=== PATIENT | female | born 1940 | race Caucasian/White ===

== ENCOUNTER 2017-04-20 05:20 | Day surgery (SDC) | payer MEDICARE ==
[2017-04-20] MEDS ORDERED: Dextrose 5%-Lactated Ringers 1,000 ML IV SCH (06:00)
[2017-04-20] MEDS ORDERED: Glycopyrrolate 0.2 MG/ML 2 ML SYRINGE IVPUSH ONE (07:15)
[2017-04-20] MEDS ORDERED: Propofol 200 MG/20 ML SDV ONE (07:22)
[2017-04-20] MEDS ORDERED: Ondansetron 4 MG/2 ML SDV ONE (07:22)
[2017-04-20] MEDS ORDERED: fentaNYL 100 MCG/2 ML SDV ONE (07:23)
[2017-04-20] MEDS ORDERED: Midazolam 1 MG/ML 2 ML SDV ONE (07:23)
[2017-04-20] MEDS ORDERED: Pantoprazole 40 MG Vial IVPUSH ONE (08:30)
[2017-04-20 09:55] VITALS: BP 123/75
--- NOTE | 2017-04-29 13:21 | OR ---
DATE OF PROCEDURE: 04/20/2017 PREOPERATIVE DIAGNOSIS: Upper abdominal pain. POSTOPERATIVE DIAGNOSIS: Upper abdominal pain associated with: 1. Small hiatal hernia with mild inflammation of esophagogastric junction. 2. Mild antral gastritis. OPERATIVE PROCEDURE: Esophagogastroduodenoscopy with: 1. Biopsies of esophagogastric junction for histologic evaluation. 2. Biopsies of antrum for CLOtest. ANESTHESIA: IV sedation. INDICATIONS FOR PROCEDURE: This is a 76-year-old presenting with some episodes of upper abdominal pain. The patient describes the pain predominantly being postprandial. It is somewhat more to the right and radiating to the back. She does have occasional overt heartburn, presently is on Zantac 300 mg a day. The plan is to proceed with an upper GI endoscopy with biopsies as indicated. Potential risks of the procedure including bleeding and perforation were discussed, and the patient wishes to proceed. DETAILS OF PROCEDURE: The patient was taken to the operating room and placed in a left lateral decubitus position. IV sedation was administered, after which the upper GI endoscope was passed orally through the length of the esophagus and into the stomach with retroflexion view of the fundus, thereafter through the pyloric channel and into the proximal duodenum. Findings included normal hypopharynx, larynx, upper esophageal sphincter. The esophageal body was unremarkable. At the EG junction, there was a small hiatal hernia with some quite mild-appearing inflammation with the mucosa being slightly edematous and friable. There was no upward extension of the gastroesophageal junction mucosal line, suggestive of Sher esophagus and no stricturing or other signs of neoplasia. Within the stomach, there was a small amount of retained bile. There was some mild patchy redness within the antrum. Otherwise, the pyloric channel and the duodenum to the junction of the third and fourth portions were unremarkable. At this point, biopsies were obtained from the antrum and sent for CLOtest for H. pylori. Multiple biopsies were then obtained from the esophagogastric junction, sent for histologic evaluation. Minimal bleeding from the biopsy sites was seen and the procedure then concluded. The patient does have some cough which has been attributed potentially to some reflux disease. The plan will be to move the patient up to Protonix from the H2 manuel. She will be given Protonix 40 mg IV in the recovery room and started on oral dose 40 mg daily. Overall, the symptoms that the patient describes are not consistent with the upper GI endoscopic findings and are somewhat suggestive of biliary colic. Given this, we will schedule the patient for a CCK-stimulated HIDA scan early next week, and then we will see her back on the following Sunday to gather all the data at that point and decide what treatment plan to pursue. Edgardo Sahu MD /[id number]
== END 2017-04-20 09:20 | disposition home or self-care (01) ==
LOC: JP.SDS 05:20
PROVIDERS: ATTEND Surgery
DX: K29.50 Unspecified chronic gastritis without bleeding (principal); K20.9 Esophagitis, unspecified; K44.9 Diaphragmatic hernia without obstruction or gangrene; Z88.0 Allergy status to penicillin
CPT/HCPCS: 87081; 88305; C9113; J2250; J2405; J2704; J3010; J7042

== ENCOUNTER 2017-04-30 08:04 | Day surgery (SDC) | payer MEDICARE ==
[~2017-04-30 08:04] MED LIST: Bupivacaine 0.5%/EPINEPHrine 1:200,000 50 ML MDV ONE
[2017-04-30] MEDS ORDERED: Acetaminophen Soln 650 MG/20.3 ML UD Cup PO ONE (08:30)
[2017-04-30] MEDS ORDERED: Acetaminophen 500 MG Tab PO ONE (08:30)
[2017-04-30] MEDS ORDERED: Naloxone 0.4 MG/ML SDV IV PRN (08:54)
[2017-04-30] MEDS ORDERED: HYDROmorphone/Normal Saline 15 MG/30 ML PCA IV PRN (08:54)
[2017-04-30] MEDS ORDERED: cefOXitin 2 GM Vial IV ONE (09:00)
[2017-04-30] MEDS: Dextrose 5%-Lactated Ringers 1,000 ML IV SCH ×2 (09:03→14:13)
[2017-04-30] MEDS ORDERED: Ketamine 500 MG/5 ML MDV IV ONE (09:15)
[2017-04-30] MEDS ORDERED: Albuterol/Ipratropium 3.0-0.5 MG/3 ML Neb Soln NEB ONE (10:22)
[2017-04-30] MEDS: cefOXitin 2 GM in Premix Bag 1 BAG IV ONE ×2 (10:22→14:29)
[2017-04-30] MEDS: Ropivacaine 30 ML, Dexamethasone 8 MG, EPINEPHrine 0.4 MG, Sodium Chloride 0.9% 47.6 ML NERVRT ONE ×8 (10:23→14:29)
[2017-04-30] MEDS ORDERED: fentaNYL 250 MCG/5 ML SDV ONE (10:26)
[2017-04-30] MEDS ORDERED: Neostigmine Methylsulfate 1 MG/ML 5 ML Syringe ONE (10:28)
[2017-04-30] MEDS ORDERED: Succinylcholine/Normal Saline 200 MG/10 ML Syringe ONE (10:28)
[2017-04-30] MEDS ORDERED: Propofol 200 MG/20 ML SDV ONE (10:28)
[2017-04-30] MEDS ORDERED: Ondansetron 4 MG/2 ML SDV ONE (10:28)
[2017-04-30] MEDS ORDERED: Dexamethasone 4 MG/ML SDV ONE (10:28)
[2017-04-30] MEDS ORDERED: Rocuronium 50 MG/5 ML Vial ONE (10:28)
[2017-04-30] MEDS ORDERED: Insulin Aspart 100 Units/ML 3 ML Pen SUBCUT ONE (12:10)
[2017-04-30] MEDS ORDERED: Albuterol/Ipratropium 3.0-0.5 MG/3 ML Neb Soln INH PRN (12:15)
[2017-04-30] MEDS ORDERED: Acetaminophen/HYDROcodone 325-5 MG Tab PO PRN (12:16)
[2017-04-30] MEDS ORDERED: Glucagon,Human Recombinant 1 MG Vial IM PRN (12:17)
[2017-04-30] MEDS ORDERED: 50% Dextrose in Water 50 ML Syringe IVPUSH PRN (12:17)
[2017-04-30] MEDS ORDERED: Glucose Gel 15 GM in 37.5 GM Tube PO PRN (12:17)
[2017-04-30] MEDS ORDERED: Ondansetron 4 MG/2 ML SDV IVPUSH PRN (13:00)
[2017-04-30] MEDS ORDERED: Pantoprazole 40 MG Vial IVPUSH SCH (14:00)
[2017-04-30] MEDS: cefOXitin 2 GM in Sodium Chloride 0.9% 50 ML IV SCH ×2 (17:27→21:33)
[2017-04-30] MEDS: Insulin Aspart 100 Units/ML 3 ML Pen SUBCUT PRN ×2 (17:29→21:31)
[2017-04-30] MEDS: Acetaminophen 325 MG Tab PO PRN (20:15)
[2017-05-01] MEDS: Dextrose 5%-Lactated Ringers 1,000 ML IV SCH (00:28)
[2017-05-01] MEDS: Acetaminophen 325 MG Tab PO PRN ×2 (02:12→11:55)
[2017-05-01] MEDS: cefOXitin 2 GM in Sodium Chloride 0.9% 50 ML IV SCH (04:32)
[2017-05-01] MEDS: Insulin Aspart 100 Units/ML 3 ML Pen SUBCUT PRN (08:38)
--- NOTE | 2017-05-01 09:22 | PCM.CONS ---
H&P History of Present Illness - General Date of Service: 05/01/17 Admit Problem/Dx: Admission Diagnosis/Problem Admission Diagnosis/Problem Cholecystectomy Source of Information: Patient, RN History Limitations: Reports: No Limitations - History of Present Illness Initial Comments - Free Text/Narative: Pamella was admitted yesterday for elective cholecystectomy to manage biliary dyskinesia. I was asked to see her today regarding a suspected new diagnosis of diabetes mellitus with a hemoglobin A1c of 7.2. She reports that she has not been feeling well for the last several months because of her gallbladder issues that she thought was ulcer. She has not been eating well and has not been exercising like normal. She has not noticed polyuria or polydipsia. She normally is very active and had been a runner up until about one year ago. She has not noticed significant changes in her weight. No neuropathic symptoms. Back Pain Score (Numeric/FACES): 3 Abdomen Pain Score (Numeric/FACES): 3 - Related Data Allergies/Adverse Reactions: Allergies Allergy/AdvReac Type Severity Reaction Status Date / Time Penicillins Allergy unknown Verified 04/30/17 08:42 Home Medications: Home Meds Acetaminophen [Mapap] 500 mg PO DAILY 12/31/12 [History] Calcium Carbonate/Vitamin D3 [Calcarb 600 with Vit D] 1 each PO DAILY 12/31/12 [ History] Cetirizine HCl [Zyrtec] 10 mg PO DAILY 12/31/12 [History] Diclofenac Sodium [Voltaren] 4 gm TOP QID PRN 12/31/12 [History] Simvastatin 10 mg OR BEDTIME 12/31/12 [History] Albuterol Sulfate [Proair Respiclick] 1 - 2 puff IH Q4HR PRN 04/18/17 [History] Ranitidine HCl [Zantac] 150 mg PO BID 04/18/17 [History] Pantoprazole Sodium [Protonix] 40 mg PO DAILY 04/27/17 [History] Acetaminophen [Tylenol] 650 mg PO Q4H PRN tablet 05/01/17 [Rx] Past Medical History HEENT History: Reports: None, Sinusitis Cardiovascular History: Reports: High Cholesterol Respiratory History: Reports: Asthma Gastrointestinal History: Reports: Colon Polyp, GERD, PUD Genitourinary History: Reports: None Musculoskeletal History: Reports: Fracture, Osteoporosis Neurological History: Reports: Concussion Hematologic History: Reports: Blood Transfusion(s) Dermatologic History: Reports: Eczema - Infectious Disease History Infectious Disease History: Reports: Chicken Pox - Past Surgical History Head Surgeries/Procedures: Reports: None HEENT Surgical History: Reports: Adenoidectomy, Tonsillectomy Cardiovascular Surgical History: Reports: None Respiratory Surgical History: Reports: None GI Surgical History: Reports: Colonoscopy, EGD, Polypectomy Female Surgical History: Reports: Hysterectomy Neurological Surgical History: Reports: None Musculoskeletal Surgical History: Reports: None Oncologic Surgical History: Reports: None Dermatological Surgical History: Reports: None Social & Family History - Family History Endocrine/Metabolic: Reports: Diabetes, type II Oncologic: Reports: Colon - Tobacco Use Smoking Status *Q: Never Smoker Second Hand Smoke Exposure: No - Caffeine Use Caffeine Use: Reports: Tea - Alcohol Use Days Per Week of Alcohol Use: 0 - Recreational Drug Use Recreational Drug Use: No Drug Use in Last 12 Months: No H&P Review of Systems - Review of Systems: Review Of Systems: See Below Free Text/Narrative: A complete 12 point review of systems was obtained. Pertinent positives and negatives are noted in the history of present illness. All other systems were reviewed and were negative except as noted. Exam - Exam Exam: See Below - Vital Signs Vital Signs: Last Vital Signs Temp 37.2 C 05/01/17 07:00 Pulse 73 05/01/17 07:00 Resp 18 05/01/17 07:00 BP 125/56 L 05/01/17 07:00 Pulse Ox 92 L 05/01/17 07:00 Weight: 60.781 kg - Exam Quality Assessment: No: Supplemental Oxygen General: Alert, Oriented, Cooperative. No: Mild Distress HEENT: Conjunctiva Clear, Mucosa Moist & [place]. No: Scleral Icterus Neck: Supple, Trachea Midline Lungs: Normal Respiratory Effort. No: Wheezing Cardiovascular: Regular Rate, Regular Rhythm GI/Abdominal Exam: Soft, No Distention Extremities: No Pedal Edema. No: Increased Warmth Skin: Warm, Dry Neuro Extensive - Mental Status: Alert, Oriented x3, Nl Response to Commands Neuro Extensive - Motor, Sensory, Reflexes: CN II-XII Intact. No: Dysarthria, Abnormal Motor, Tremor Psychiatric: Alert, Normal Affect - Patient Data Lab Results Last 24 hrs: Laboratory Results - last 24 hr 05/01/17 05/01/17 05/01/17 Range/Units 04:31 04:31 04:31 WBC 15.4 H (4.5-11.0) K/uL RBC 4.24 (3.30-5.50) M/uL Hgb 12.0 (12.0-15.0) g/dL Hct 37.3 (36.0-48.0) % MCV 88 (80-98) fL MCH 28 (27-31) pg MCHC 32 (32-36) % Plt Count 210 (150-400) K/uL Neut % (Auto) 80 H (36-66) % Lymph % (Auto) 13 L (24-44) % [place] % (Auto) 8 H (2-6) % Eos % (Auto) 0 L (2-4) % Baso % (Auto) 0 (0-1) % Hemoglobin A1c 7.2 H (4.5-6.2) % Total Bilirubin 0.4 (0.2-1.0) mg/dL Alkaline Phosphatase 105 (46-116) U/L Result Diagrams: 05/01/17 04:31 Consult PN Assessment/Plan POD#: 1 Procedures: Procedures COMP SCREEN MAMMOGRAM ADD-ON (01/22/14) CT MAXILLOFACIAL W/O DYE (09/20/16) CULTURE SCREEN ONLY (04/20/17) DIAGNOSTIC COLONOSCOPY (01/01/13) EGD BIOPSY SINGLE/MULTIPLE (04/20/17) HOT OR COLD PACKS THERAPY (12/15/14) MAMMOGRAM SCREENING (12/19/12) MANUAL THERAPY 1/> REGIONS (12/15/14) PT EVALUATION (11/13/14) THERAPEUTIC EXERCISES (12/15/14) TISSUE EXAM BY PATHOLOGIST (04/20/17) (1) Diabetes mellitus, type II SNOMED Code(s): 53287112 Code(s): E11.9 - TYPE 2 DIABETES MELLITUS WITHOUT COMPLICATIONS Qualifiers: Diabetes mellitus complication status: without complication Diabetes mellitus intermediate designer insulin use: without intermediate use Qualified Code(s): E11.9 - Type 2 diabetes mellitus without complications Problem List Initiated/Reviewed/Updated: Yes Plan: ASSESSMENT AND PLAN - New diagnosis of diabetes mellitus type 2 - very mild elevation of hemoglobin A1c at 7.2. We did discuss diabetes mellitus as well as some foods that are higher in sugars as well as importance of good diet and exercise. We discussed potential treatment options including lifestyle modification versus medication versus both. At this point she would like to avoid additional medications and like to try to modify her lifestyle by increasing her exercise and decreasing carbohydrate intake. She believes she will be able to accomplish this and has room in her lifestyle for sufficient changes. She will be meeting with the clinical staff educator later in the day and is interested in a follow-up with her primary care for further discussion once she has been out of the hospital. -I encouraged her to get regular exercise and she has previously had a successful walking program -She will be making dietary changes with additional recommendations from the diabetic educators -outpatient follow-up with primary care -Repeat hemoglobin A1c in 3 months Biliary dyskinesia status post cholecystectomy - clinically doing well. No pain at this time. -Postoperative cares per surgical team Thank you for the interesting consultation. I do not believe she needs additional inpatient management for her diabetes which is very mild at this time. She should be able to make significant lifestyle modifications and avoid medications based on the current situation. I would defer additional care to the primary care setting. Navarro Doan M.D. Requesting Provider: Dr Sahu Date Consult Requested: 05/01/17 Reason for Consult: new diabetes diagnosis Patient History Reviewed: Yes Admission H&P Reviewed: No (not available) Notified Requestor: No Time Spent (in minutes): 55
[2017-05-01 13:32] VITALS: BP 133/64
--- NOTE | 2017-05-01 17:33 | PCM.SURGPN ---
- General Info Date of Service: 05/01/17 Date of Surgery/Procedure: 04/30/17 POD#: 1 Post-Op Diagnosis: S/p cholecystetomy secondary to biliary dyskinesia Admission Diagnosis/Problem: Biliary dyskinesia Functional Status: Reports: Pain Controlled Pain Score: 2 - Review of Systems General: Reports: No Symptoms Pulmonary: Reports: No Symptoms Cardiovascular: Reports: No Symptoms Gastrointestinal: Reports: No Symptoms, Other (no constipation, vomiting, nausea or diarrhea. ) Genitourinary: Reports: No Symptoms Musculoskeletal: Reports: No Symptoms Skin: Reports: No Symptoms Neurological: Reports: No Symptoms Psychiatric: Reports: No Symptoms - Patient Data Vitals - Most Recent: Last Vital Signs Temp 36.4 C 05/01/17 13:00 Pulse 70 05/01/17 13:00 Resp 18 05/01/17 13:00 BP 133/64 05/01/17 13:00 Pulse Ox 99 05/01/17 13:00 Weight - Most Recent: 60.781 kg I&O - Last 24 Hours: Intake & Output 05/01/17 05/01/17 05/01/17 06:59 14:59 22:59 Intake Total 1713 480 Output Total 2250 400 Balance -537 80 Lab Results Last 24 Hrs: Laboratory Results - last 24 hr 05/01/17 05/01/17 05/01/17 Range/Units 04:31 04:31 04:31 WBC 15.4 H (4.5-11.0) K/uL RBC 4.24 (3.30-5.50) M/uL Hgb 12.0 (12.0-15.0) g/dL Hct 37.3 (36.0-48.0) % MCV 88 (80-98) fL MCH 28 (27-31) pg MCHC 32 (32-36) % Plt Count 210 (150-400) K/uL Neut % (Auto) 80 H (36-66) % Lymph % (Auto) 13 L (24-44) % [place] % (Auto) 8 H (2-6) % Eos % (Auto) 0 L (2-4) % Baso % (Auto) 0 (0-1) % Hemoglobin A1c 7.2 H (4.5-6.2) % Total Bilirubin 0.4 (0.2-1.0) mg/dL Alkaline Phosphatase 105 (46-116) U/L Med Orders - Current: Current Medications Discontinued Medications Acetaminophen (Tylenol Extra Strength) 1,000 mg PO ONETIME ONE Stop: 04/30/17 08:31 Last Admin: 04/30/17 09:02 Dose: 1,000 mg Acetaminophen (Tylenol) 650 mg PO Q4H PRN PRN Reason: LESSER PAIN Last Admin: 05/01/17 11:55 Dose: 650 mg Hydrocodone Bitart/Acetaminophen ([place] 325-5 Mg) 1 - 2 tab PO Q4H PRN PRN Reason: Pain Albuterol/Ipratropium (Duoneb 3.0-0.5 Mg/3 Ml) 3 ml NEB ONETIME ONE Stop: 04/30/17 10:23 Last Admin: 04/30/17 10:26 Dose: 3 ml Albuterol/Ipratropium (Duoneb 3.0-0.5 Mg/3 Ml) 3 ml INH QID PRN PRN Reason: BREATHING DIFFICULTY Bupivacaine HCl/Epinephrine Bitart ([place] 0.5%/Epinephrine 1:200,000) Confirm Administered Dose 50 ml .ROUTE .STK-MED ONE Stop: 04/30/17 06:49 Ropivacaine 30 ml/Dexamethasone 8 mg/Epinephrine HCl 0.4 mg/ Sodium Chloride 47.6 ml 0 ml NERVRT ONETIME ONE Stop: 04/30/17 09:16 Last Admin: 04/30/17 14:29 Dose: Not Given Dexamethasone (Dexamethasone) Confirm Administered Dose 4 mg .ROUTE .STK-MED ONE Stop: 04/30/17 10:29 Dextrose (Glutose 15) 15 gm PO ASDIRECTED PRN PRN Reason: HYPOGLYCEMIA Dextrose/Water (Dextrose 50% In Water) 50 ml IVPUSH ASDIRECTED PRN PRN Reason: HYPOGLYCEMIA Fentanyl (Sublimaze) Confirm Administered Dose 250 mcg .ROUTE .STK-MED ONE Stop: 04/30/17 10:27 Glucagon (Glucagen) 1 mg IM ASDIRECTED PRN PRN Reason: HYPOGLYCEMIA Glycopyrrolate () Confirm Administered Dose 1 mg .ROUTE .STK-MED ONE Stop: 04/30/17 10:29 Hydromorphone HCl (Dilaudid [employer]age Inspection Machine Tender 15 Mg In Ns 30 Ml) 0 mg IV ASDIRECTED PRN; Protocol PRN Reason: TRANSITIONAL CARE LIAISON PAIN CONTROL Dextrose/Lactated Ringer's (Dextrose 5%-Lactated Ringers) 1,000 mls @ 100 mls/ hr IV ASDIRECTED [facility] Last Admin: 05/01/17 00:28 Dose: 100 mls/hr Cefoxitin Sodium 2 gm/ Premix 20 mls @ 40 mls/hr IV ONETIME ONE Stop: 04/30/17 09:29 Last Admin: 04/30/17 14:29 Dose: Not Given Ketamine HCl 100 mg/ Sodium (Chloride) 100 mls @ 17.1 mls/hr IV ASDIRECTED NEAL PRN Reason: 5 MCG/KG/MIN Cefoxitin Sodium 2 gm/ Sodium (Chloride) 50 mls @ 100 mls/hr IV Q6H [facility] Stop: 05/01/17 04:29 Last Admin: 05/01/17 04:32 Dose: 100 mls/hr Insulin Aspart (Novolog) 3 unit SUBCUT ONETIME ONE Stop: 04/30/17 12:11 Last Admin: 04/30/17 11:58 Dose: 3 units Insulin Aspart (Novolog) 0 unit SUBCUT QID PRN; Protocol PRN Reason: LOW CORRECTIONAL DOSE Last Admin: 05/01/17 08:38 Dose: 1 units Ketamine HCl (Ketalar) 28 mg IV ONETIME ONE Stop: 04/30/17 09:16 Last Admin: 04/30/17 14:29 Dose: Not Given Naloxone HCl (Narcan) 0.1 mg IV ASDIRECTED PRN PRN Reason: decreased respiratory rate Neostigmine Methylsulfate (Neostigmine) Confirm Administered Dose 5 mg .ROUTE .STK-MED ONE Stop: 04/30/17 10:29 Ondansetron HCl (Zofran) Confirm Administered Dose 4 mg .ROUTE .STK-MED ONE Stop: 04/30/17 10:29 Ondansetron HCl (Zofran) 4 mg IVPUSH Q4H PRN PRN Reason: Nausea/Vomiting Pantoprazole Sodium (Protonix Iv) 40 mg IVPUSH Q24H [facility] Last Admin: 04/30/17 14:09 Dose: 40 mg Propofol (Diprivan 20 Ml) Confirm Administered Dose 200 mg .ROUTE .STK-MED ONE Stop: 04/30/17 10:29 Rocuronium [place] (Zemuron) Confirm Administered Dose 50 mg .ROUTE .STK-MED ONE Stop: 04/30/17 10:29 Succinylcholine Chloride (Succinylcholine In Ns Pf) Confirm Administered Dose 200 mg .ROUTE .STK-MED ONE Stop: 04/30/17 10:29 - Exam Wound/Incisions: Healing Well General: Alert, Oriented, Cooperative, No Acute Distress Neck: Supple, Trachea Midline, No JVD Lungs: Clear to Auscultation, Normal Respiratory Effort Cardiovascular: Regular Rate, Regular Rhythm GI/Abdominal Exam: Normal Bowel Sounds, Soft, No Organomegaly, No Distention, Tender Skin: Warm, Dry, Intact Neurological: No New Focal Deficit Psy/Mental Status: Alert, Normal Affect, Normal Mood - Problem List Review Problem List Initiated/Reviewed/Updated: Yes - My Orders Last 24 Hours: Active Orders 24 hr Category Date Time Status Communication Order [RC] ASDIRECTED Care 05/01/17 07:08 Stop Req Communication Order [RC] ROUTINE Care 05/01/17 13:35 Active Diabetes Education [RC] DAILY Care 05/01/17 07:11 Active May Shower [RC] ASDIRECTED Care 05/01/17 07:08 Active Ready for Discharge [RC] PER UNIT ROUTINE Care 05/01/17 14:05 Active Consult to Computing Services Director [Consult to Diabetic Nurse Cons 05/01/17 07:12 Active Specialist] [CONS] Routine Consult to Physician [CONS] Routine Cons 05/01/17 07:06 Ordered Convert IV to Saline Lock [OM.PC] Routine Oth 05/01/17 07:08 Ordered Remove Dressing [OM.PC] Routine Oth 05/01/17 07:07 Ordered - Plan Plan (Free Text/Narrative):: Pamella is a 76 year old female with a past medical history of biliary dyskinesia who is S/P cholecystectomy. The patient is having mild abdominal tenderness. She as also concerned about her lab result for her resent Hgb A1c. She denies any fevers, chills, nausea, vomiting, diarrhea, constipation, palpitation or dizziness. She had no further concerns or questions. Post operative abdominal pain- patient states she is having mild tenderness. There were no peritoneal signs on exam. She is afebrile and denies any abdominal symptoms. - Tylenol 650 PRN # New onset diabetes- the patient has been having polydipsia and polyuria lately. She also adds that since she has not been feeling well for the past couple of months, she has not been eating well or exercising regularly. Her Hgb A1c was 7.2 today. Consulted medicine. Medicine and the patient agreed to try attack this with improved diet and exercise first before starting any oral hypoglycemic medication. Diabetic education also saw her today. - Medicine consult, appreciate recs - Q4hr accu-checks # Leukocytosis- The patient did have a WBC this morning of 15.4. This is most likely marginated from her surgery yesterday. She is afrebile and has no signs or symptoms of peritonitis, UTI, or pneumonia. Will continue to monitor temperature trends and subsequent CBC's may be needed. VTE PPX- SCD.s Pneumonia PPX- Pt advised to walk around and use incentive spirometry 10 times per hour Code status: full Fluids: D/c Diet: Diabetic diet Bowel regimen: Senna/miralx Nausea: Zofran Q4hr or [place] Q6hr PRN Dispo: The patient will discharge to home today and follow up in clinic for further management of her new onset diabetes.
--- NOTE | 2017-05-03 07:44 | DISCH ---
ADMISSION DIAGNOSES: Biliary dyskinesia and elevated blood sugar. DISCHARGE DIAGNOSES: Status post laparoscopic cholecystectomy and diabetes mellitus type 2, hemoglobin A1c 7.2. HISTORY: Pamella Hooper is a 76-year-old female with longstanding history of dyspepsia. After preoperative evaluation and discussion of possible risks and possible complications, she wished to proceed with surgical procedure. HOSPITAL COURSE: Pamella had her surgery on 04/30/2017. She had no operative complications. She did have a hemoglobin A1c, which was 7.2. On postop day 1, she received diabetic education and consultation with Internal Medicine, Navarro Doan M.D. She was changed to oral pain medication and started on a regular diet. After she received her education, she decides to do diet and exercise and to start the metformin and to follow up with her primary care provider. She was able to be discharged to home on postop day #1 on 05/01/2017. PHYSICAL EXAMINATION: GENERAL: Pamella Hooper is a 76-year-old female. Height is 5 feet 4.17 inches, weight is 134 pounds. TPR is 97.5, 70, 18. Blood pressure 133/64. HEENT: Negative. NECK: Supple. HEART: Regular rate and rhythm. LUNGS: Clear. ABDOMEN: Sutures in place and abdominal binder on. EXTREMITIES: Without peripheral edema. DISPOSITION: Discharged to home. CONDITION: Stable and improving. FOLLOWUP APPOINTMENTS: Dee Alcazar PA-C, on 05/09/2017 at 11:00 a.m.; Jam Barahona M.D., on 05/15/2017 at 9:20 a.m.; and Abigail Herrera, hospice registered nurse, 06/07/2017 at 1:30 p.m. DIET: Diabetic diet per Callie Garcia RD. ACTIVITY: As tolerated. No lifting greater than 10 pounds. Driving, do not drive while on narcotic pain medication. Shower/bathing, may shower. Keep operative site clean and dry. Wear abdominal binder for 2 weeks and then as tolerated. HOME MEDICATIONS: [place] 5/325 mg 1 to 2 q.4 hours p.r.n. pain, #40; simvastatin 10 mg at bedtime; Zantac 150 mg b.i.d.; Protonix 40 mg p.o. daily; Voltaren 4 g topical q.i.d.; Zyrtec 10 mg p.o. daily; calcium carbonate and vitamin D3 one daily; ProAir 1 to 2 puffs every 4 hours p.r.n. wheezing and shortness of breath; and Tylenol 650 mg p.o. 4 hours p.r.n. lesser pain.
--- NOTE | 2017-05-07 13:23 | OR ---
DATE OF PROCEDURE: 04/30/2017 PREOPERATIVE DIAGNOSIS: Biliary dyskinesia. POSTOPERATIVE DIAGNOSES: 1. Biliary dyskinesia associated with cholelithiasis. 2. Peritoneal nodule overlying surface of right lobe of the liver (segment V). 3. Nodular sclerotic area of liver involving hepatic segment IV. OPERATIVE PROCEDURES: Diagnostic laparoscopy with: 1. Cholecystectomy (84102). 2. Excision of peritoneal nodule overlying the surface of liver segment V (51018). 3. Wedge biopsy of a nodular area of liver involving hepatic segment IV (67276). ANESTHESIA: General. ASSISTANTS: Dee Alcazar PA-C and PETAR Rosales3. INDICATION FOR PROCEDURE: This is a 76-year-old presenting recently with some postprandial right upper quadrant pain radiating to the back. A CCK-stimulated HIDA scan showed a below normal ejection fraction with the stimulant in this case Ensure in lieu of the unavailability of CCK causing reproduction of the patient's symptoms. Plan is to proceed with a laparoscopic cholecystectomy. Potential risks including bleeding, infection, injury to underlying viscera, possible persistent symptoms postoperatively as well as the remote possibility of cardiopulmonary, septic, or hemorrhagic complications leading to were discussed, and the patient wishes to proceed. DETAILS OF PROCEDURE: The patient was taken to the operating room and placed in a supine position. After general endotracheal anesthesia was induced, the abdomen was prepped and draped. The peritoneal cavity was initially entered through an epigastric trocar site under direct vision with an Optiview trocar and inflated to 15 mmHg pressure of CO2. Following this, a 12-mm subumbilical trocar was placed along with a 5-mm right abdominal trocar. Bilateral subcostal transversus abdominis plane blocks were then placed using the standard solution with direct visualization of the needle at the level of the transverse abdominis muscle plane. Following the standard solution injection, the upper abdomen was examined. The patient was noted to have a distended gallbladder, which was edematous, particularly in the area of the cystohepatic triangle. There was also a roughly 8 mm peritoneal nodule located on the surface of the hepatic segment V. Additionally hepatic segment IV, there was a ridge of nodular sclerotic-appearing liver tissue. At this point, the peritoneal nodular segment V was excised and sent as a separate specimen and then using Harmonic scalpel, a wedge excision, the area of nodularity on segment IV was excised, and these were both sent as separate specimens. Attention was then taken to the gallbladder. The gallbladder was retracted anteriorly and laterally, and dissection began on the gallbladder neck, continued around the gallbladder neck and cystic duct junction. Once that area was well delineated as was the adjacent cystic artery, both structures were clipped 3 times proximally and once distally and divided. Gallbladder was then dissected off the gallbladder bed using Harmonic scalpel and delivered through the epigastric trocar site. It was noted to contain some tiny black stones within it. The area of dissection was then inspected. No bleeding or bile leaks were seen. The ductal closure appeared to be secure. There was a tendency for oozing around the area of the cystic artery and area of the cystohepatic triangle. Given this, we reinforced with 4 mL of fibrin sealant. A drain otherwise was not felt to be necessary. The trocars were then sequentially removed. The fascia at the 12-mm site was closed with 0 Vicryl stitch and the skin with 4-0 Vicryl skin stitch. Dressing was applied. The patient was taken to the recovery room in a satisfactory condition. There were no evident complications. Physician physician assistant, Dee Alcazra, played an essential role in assisting in this case, helping to position the patient, retract structures as needed, as well as suturing and cutting sutures when indicated. Her presence improved patient safety and decreased the operative time. Edgardo Sahu MD /[id number]
== END 2017-05-01 14:36 | disposition home or self-care (01) ==
LOC: JP.SDS 08:04 → JP.MS 11:35 → JP.SDS 05-01 07:00 → UNDOADMIN 05-01 07:00 → JP.MS 05-01 07:00 → UNDODISIN 05-01 14:30 → JP.SDS 05-01 14:36
PROVIDERS: ATTEND Surgery
DX: K81.1 Chronic cholecystitis (principal); K76.89 Other specified diseases of liver; E11.9 Type 2 diabetes mellitus without complications; E78.5 Hyperlipidemia, unspecified; M19.90 Unspecified osteoarthritis, unspecified site; Z88.0 Allergy status to penicillin; J45.909 Unspecified asthma, uncomplicated; K21.9 Gastro-esophageal reflux disease without esophagitis; Z79.899 Other long term (current) drug therapy
CPT/HCPCS: 36415; 47100; 47562; 49203; 82247; 82962; 83036; 84075; 85025; 88304; 88307; A9270; C9113; J0171; J0694; J1100; J2405; J2704; J2795; J3010; J7030; J7042; J7050; J7620

== ENCOUNTER 2017-06-02 10:07 | Emergency (ER) | payer MEDICARE ==
--- NOTE | 2017-06-02 10:51 | EDM.PDOC ---
ED HPI GENERAL MEDICAL PROBLEM - General Chief Complaint: Genitourinary Problem Stated Complaint: KIDNEY ISSUES Time Seen by Provider: 06/02/17 10:30 Source of Information: Reports: Patient History Limitations: Reports: No Limitations - History of Present Illness INITIAL COMMENTS - FREE TEXT/NARRATIVE: 77-year-old female who is been having some persistent problems since a gallbladder surgery 5 weeks ago. The main complaint is persistent back pain, she also has early satiety, no appetite, and is losing weight. She has no urinary symptoms such as dysuria but seems to have slow flow and the urine is becoming more dark as time goes on. No fevers or chills, no respiratory symptoms , no chest pain. She feels like her skin is becoming "espinal". No edema. Her surgical incisions have healed well. Onset: Gradual Severity: Moderate Associated Symptoms: Reports: Loss of Appetite, Malaise, Weakness, Other ( Weight loss). Denies: Chest Pain, Fever/Chills, Headaches, Rash, Shortness of Breath Middle Back Pain Score (Numeric/FACES): 7 - Related Data Allergies Allergy/AdvReac Type Severity Reaction Status Date / Time Penicillins Allergy unknown Verified 06/02/17 10:23 Home Meds: Home Meds Acetaminophen [Mapap] 500 mg PO DAILY 12/31/12 [History] Calcium Carbonate/Vitamin D3 [Calcarb 600 with Vit D] 1 each PO DAILY 12/31/12 [ History] Cetirizine HCl [Zyrtec] 10 mg PO DAILY 12/31/12 [History] Diclofenac Sodium [Voltaren] 4 gm TOP QID PRN 12/31/12 [History] Simvastatin 10 mg OR BEDTIME 12/31/12 [History] Albuterol Sulfate [Proair Respiclick] 1 - 2 puff IH Q4HR PRN 04/18/17 [History] Ranitidine HCl [Zantac] 150 mg PO BID 04/18/17 [History] Acetaminophen [Tylenol] 650 mg PO Q4H PRN tablet 05/01/17 [Rx] Past Medical History HEENT History: Reports: None, Sinusitis Cardiovascular History: Reports: High Cholesterol Respiratory History: Reports: Asthma Gastrointestinal History: Reports: Cholelithiasis, Colon Polyp, GERD, PUD Genitourinary History: Reports: None [employer]UR [employer] PERSONALITY History: Reports: Musculoskeletal History: Reports: Fracture, Osteoporosis Neurological History: Reports: Concussion Endocrine/Metabolic History: Reports: Diabetes, Type II Hematologic History: Reports: Blood Transfusion(s) Dermatologic History: Reports: Eczema - Infectious Disease History Infectious Disease History: Reports: C-Difficile, Measles, Mumps - Past Surgical History Head Surgeries/Procedures: Reports: None HEENT Surgical History: Reports: Adenoidectomy, Tonsillectomy Cardiovascular Surgical History: Reports: None Respiratory Surgical History: Reports: None GI Surgical History: Reports: Cholecystectomy, Colonoscopy, EGD, Polypectomy Female Surgical History: Reports: Hysterectomy Neurological Surgical History: Reports: None Musculoskeletal Surgical History: Reports: None Oncologic Surgical History: Reports: None Dermatological Surgical History: Reports: None Social & Family History - Family History Endocrine/Metabolic: Reports: Diabetes, type II Oncologic: Reports: Colon - Tobacco Use Smoking Status *Q: Never Smoker Second Hand Smoke Exposure: No - Caffeine Use Caffeine Use: Reports: Tea - Alcohol Use Days Per Week of Alcohol Use: 0 - Recreational Drug Use Recreational Drug Use: No Drug Use in Last 12 Months: No ED ROS GENERAL - Review of Systems Review Of Systems: See Below Constitutional: Reports: Malaise, Weakness, Decreased Appetite, Weight Loss. Denies: Fever, Chills HEENT: Reports: No Symptoms Respiratory: Denies: Shortness of Breath, Pleuritic Chest Pain Cardiovascular: Denies: Chest Pain Endocrine: Reports: Fatigue GI/Abdominal: Reports: Abdominal Pain (Some slight epigastric tenderness waxes and wanes). Denies: Nausea, Vomiting : Reports: Flank Pain (Bilateral, mildly worse on the right), Frequency ( Lower frequency), Other (Dark urine). Denies: Dysuria, Incontinence, Pain, Urgency, Urinary Retention Neurological: Reports: No Symptoms Psychiatric: Reports: No Symptoms ED EXAM, GENERAL - Physical Exam Exam: See Below Exam Limited By: No Limitations General Appearance: Alert, No Apparent Distress Eye Exam: Bilateral Eye: Normal Inspection (No obvious jaundice) Head: Atraumatic Neck: Supple Respiratory/Chest: No Respiratory Distress, Lungs Clear Cardiovascular: Regular Rate, Rhythm GI/Abdominal: Normal Bowel Sounds, Soft, Tender (Some tenderness in the subxiphoid area only, no guarding) Extremities: No: Pedal Edema Neurological: Alert, Oriented, No Motor/Sensory Deficits Psychiatric: Normal Affect, Normal Mood Skin Exam: Warm, Dry, Pallor (She does appear somewhat pale) Course - Vital Signs Last Recorded V/S: Last Vital Signs Temp 97.3 F 06/02/17 14:29 Pulse 89 06/02/17 14:29 Resp 16 06/02/17 14:29 BP 122/75 06/02/17 14:29 Pulse Ox 98 06/02/17 14:29 - Orders/Labs/Meds Orders: Active Orders 24 hr Category Date Time Status Abdomen Pelvis w Cont [CT] Stat Exams 06/02/17 11:59 Taken Iopamidol [Isovue-300 (61%)] Med 06/02/17 12:30 Active 80 ml IV . DIRECTED Sodium Chloride 0.9% [Normal Saline] 100 ml Med 06/02/17 12:30 Active IV ASDIRECTED Medication Orders Sodium Chloride (Normal Saline) 100 mls @ 3 mls/sec IV ASDIRECTED NEAL Last Admin: 06/02/17 12:45 Dose: 3 mls/sec Iopamidol (Isovue-300 (61%)) 80 ml IV . DIRECTED NEAL Last Admin: 06/02/17 12:44 Dose: 80 ml Labs: Laboratory Tests 06/02/17 06/02/17 06/02/17 Range/Units 10:50 10:58 10:58 WBC 6.7 (4.5-11.0) K/uL RBC 4.76 (3.30-5.50) M/uL Hgb 13.6 (12.0-15.0) g/dL Hct 41.8 (36.0-48.0) % MCV 88 (80-98) fL MCH 29 (27-31) pg MCHC 33 (32-36) % Plt Count 202 (150-400) K/uL Neut % (Auto) 56 (36-66) % Lymph % (Auto) 30 (24-44) % Benzie % (Auto) 12 H (2-6) % Eos % (Auto) 2 (2-4) % Baso % (Auto) 1 (0-1) % Sodium 142 (140-148) mmol/L Potassium 3.8 (3.6-5.2) mmol/L Chloride 103 (100-108) mmol/L Carbon Dioxide 27 (21-32) mmol/L Anion Gap 12.1 (5.0-14.0) mmol/L BUN 13 (7-18) mg/dL Creatinine 0.7 (0.6-1.0) mg/dL Est Cr Clr Drug Dosing 57.80 mL/min Estimated GFR (MDRD) > 60 (>60) Glucose 134 H (74-106) mg/dL Calcium 9.2 (8.5-10.1) mg/dL Total Bilirubin 6.7 H D (0.2-1.0) mg/dL AST 345 H (15-37) U/L ALT 717 H (12-78) U/L Alkaline Phosphatase 446 H D (46-116) U/L Total Protein 7.2 (6.4-8.2) g/dL Albumin 4.0 (3.4-5.0) g/dL Globulin 3.2 (2.3-3.5) g/dL Albumin/Globulin Ratio 1.3 (1.2-2.2) Amylase 36 (25-115) U/L Lipase 68 L (73-393) U/L Urine Color Urine Appearance Slightly cloudy Urine pH 5.0 (4.5-8.0) Ur Specific [place] 1.025 (1.008-1.030) Urine Protein 30 H (NEGATIVE) mg/dL Urine Glucose (UA) Normal (NEGATIVE) mg/dL Urine Ketones 50 H (NEGATIVE) mg/dL Urine Occult Blood Moderate (NEGATIVE) Urine Nitrite Negative (NEGATIVE) Urine Bilirubin Moderate (NEGATIVE) Urine Urobilinogen >=12 H (NORMAL) mg/dL Ur Leukocyte Esterase Small (NEGATIVE) Urine RBC 0-5 (0-5) Urine WBC 0-5 (0-5) Ur Epithelial Cells Moderate Amorphous Sediment Few Urine Bacteria Few Urine Mucus Many Meds: Medications Generic Name Dose Route Start Last Admin Trade Name Freq PRN Reason Stop Dose Admin Sodium Chloride 100 mls @ 3 mls/sec 06/02/17 12:30 06/02/17 12:45 Normal Saline IV 3 mls/sec ASDIRECTED NEAL Administration Iopamidol 80 ml 06/02/17 12:30 06/02/17 12:44 Isovue-300 (61%) IV 80 ml . DIRECTED NEAL Administration Discontinued Medications Generic Name Dose Route Start Last Admin Trade Name Freq PRN Reason Stop Dose Admin Sodium Chloride 10 ml 06/02/17 12:30 06/02/17 12:45 Saline Flush FLUSH 06/02/17 12:31 10 ml ONETIME ONE Administration - Re-Assessments/Exams Free Text/Narrative Re-Assessment/Exam: 06/02/17 10:51 A urine was obtained by clean catch, it looks very brown but clear. He was sent for UA, along with blood obtained for CBC, amylase, lipase, and CMP. 06/02/17 13:58 Bilirubin is 6.7. All LFTs are elevated as well. 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 Arrangements were made for the patient to go to [place] for an endoscopic ultrasound-guided biopsy and further treatment. Departure - Departure Time of Disposition: 14:49 Disposition: DC/Tfer to Other Condition: Fair Clinical Impression: Obstructive hyperbilirubinemia, Pancreatic tumor - Discharge Information Instructions: Jaundice, Adult, [id number] Referrals: Ilir Barahona MD [Primary Care Provider] - Forms: ED Department Discharge Care Plan Goals: You need to go to [facility] in [place] to be admitted for further evaluation and care regarding your jaundice. - My Orders Last 24 Hours: My Active Orders 06/02/17 11:59 Abdomen Pelvis w Cont [CT] Stat 06/02/17 12:30 Iopamidol [Isovue-300 (61%)] 80 ml IV . DIRECTED Sodium Chloride 0.9% [Normal Saline] 100 ml IV ASDIRECTED - Assessment/Plan Last 24 Hours: My Active Orders 06/02/17 11:59 Abdomen Pelvis w Cont [CT] Stat 06/02/17 12:30 Iopamidol [Isovue-300 (61%)] 80 ml IV . DIRECTED Sodium Chloride 0.9% [Normal Saline] 100 ml IV ASDIRECTED
[2017-06-02] MEDS ORDERED: Sodium Chloride 0.9% 100 ML IV SCH (12:30)
[2017-06-02] MEDS ORDERED: Iopamidol 612 MG/ML 100 ML Bottle IV SCH (12:30)
[2017-06-02] MEDS ORDERED: Sodium Chloride 0.9% 10 ML Syringe FLUSH ONE (12:30)
[2017-06-02 14:30] VITALS: BP 122/75
== END 2017-06-02 14:55 | disposition other institution (70) ==
LOC: JP.ED 10:07
DX: D49.0 Neoplasm of unspecified behavior of digestive system (principal); E80.6 Other disorders of bilirubin metabolism; E11.9 Type 2 diabetes mellitus without complications; E78.00 Pure hypercholesterolemia, unspecified; Z79.899 Other long term (current) drug therapy; Z88.0 Allergy status to penicillin
CPT/HCPCS: 36415; 74177; 80053; 81001; 82150; 83690; 85025; 99285; J7030; J7050; Q9967

== ENCOUNTER 2017-06-08 17:19 | Emergency (ER) | payer MEDICARE ==
[2017-06-08] MEDS ORDERED: Lactated Ringers 1,000 ML IV ONE (18:25)
[2017-06-08] MEDS ORDERED: Ketorolac 30 MG/ML SDV IVPUSH ONE (18:32)
[2017-06-08] MEDS ORDERED: Polyethylene Glycol 3350 Powder 17 GM Packet PO ONE (18:33)
[2017-06-08] MEDS ORDERED: Bisacodyl 10 MG Supp RECTAL ONE (18:33)
[2017-06-08] MEDS ORDERED: Metoclopramide 10 MG/2 ML SDV IVPUSH ONE (18:33)
--- NOTE | 2017-06-08 18:39 | EDM.PDOC ---
ED HPI GENERAL MEDICAL PROBLEM - General Chief Complaint: General Stated Complaint: FLUIDS Time Seen by Provider: 06/08/17 18:25 Source of Information: Reports: Patient, Family, Old Records History Limitations: Reports: No Limitations - History of Present Illness INITIAL COMMENTS - FREE TEXT/NARRATIVE: 77 yo female was discharged this past Sunday from [facility] after a partial work up for a recent dx of pancreatic CA. Has further testing and tx scheduled for this next week there. Has not been eating well. Has nausea and vomiting not controlled by Zofran ODT 4 mg tid. Also, has not had a BM in about a week. Denies abdominal distention. Has some back pain partially controlled with topical Voltaren. Has Percocet, but has not been taking it. Onset: Gradual Onset Date: 05/28/17 Duration: Day(s):, Getting Worse Location: Reports: Abdomen, Back Quality: Reports: Ache Severity: Mild Improves with: Reports: Medication Worsens with: Reports: Other (? time) Context: Reports: Other (pancreatic CA recently diagnosed.) Associated Symptoms: Reports: Nausea/Vomiting, Weakness, Other (constipation). 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) (Zofran ) mid back Pain Score (Numeric/FACES): 4 - Related Data Allergies Allergy/AdvReac Type Severity Reaction Status Date / Time Penicillins Allergy unknown Verified 06/08/17 17:59 Home Meds: Home Meds Acetaminophen [Mapap] 500 mg PO DAILY 12/31/12 [History] Calcium Carbonate/Vitamin D3 [Calcarb 600 with Vit D] 1 each PO DAILY 12/31/12 [ History] Cetirizine HCl [Zyrtec] 10 mg PO DAILY 12/31/12 [History] Diclofenac Sodium [Voltaren] 4 gm TOP QID PRN 12/31/12 [History] Simvastatin 10 mg OR BEDTIME 12/31/12 [History] Albuterol Sulfate [Proair Respiclick] 1 - 2 puff IH Q4HR PRN 04/18/17 [History] Ranitidine HCl [Zantac] 150 mg PO BID 04/18/17 [History] Acetaminophen [Tylenol] 650 mg PO Q4H PRN tablet 05/01/17 [Rx] Ondansetron HCl [Zofran] 4 mg PO Q4H 06/08/17 [History] Prochlorperazine [Compazine] 25 mg RC TID PRN #14 supp.rect 06/08/17 [Rx] Past Medical History HEENT History: Reports: None, Sinusitis Cardiovascular History: Reports: High Cholesterol Respiratory History: Reports: Asthma Gastrointestinal History: Reports: Cholelithiasis, Colon Polyp, GERD, PUD Genitourinary History: Reports: 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: Musculoskeletal History: Reports: Fracture, Osteoporosis Neurological History: Reports: Concussion Endocrine/Metabolic History: Reports: Diabetes, Type II Hematologic History: Reports: Blood Transfusion(s) Oncologic (Cancer) History: Reports: Pancreatic Dermatologic History: Reports: Eczema - Infectious Disease History Infectious Disease History: Reports: C-Difficile, Measles, Mumps - Past Surgical History HEENT Surgical History: Reports: Adenoidectomy, Tonsillectomy Cardiovascular Surgical History: Reports: None Respiratory Surgical History: Reports: None GI Surgical History: Reports: Cholecystectomy, Colonoscopy, EGD, Polypectomy, Other (See Below) Other GI Surgeries/Procedures: stent in bile duct Female Surgical History: Reports: Hysterectomy Neurological Surgical History: Reports: None Musculoskeletal Surgical History: Reports: None Dermatological Surgical History: Reports: None Social & Family History - Family History Endocrine/Metabolic: Reports: Diabetes, type II Oncologic: Reports: Colon - Tobacco Use Smoking Status *Q: Never Smoker Second Hand Smoke Exposure: No - Caffeine Use Caffeine Use: Reports: Tea - Alcohol Use Days Per Week of Alcohol Use: 0 - Recreational Drug Use Recreational Drug Use: No Drug Use in Last 12 Months: No ED ROS GENERAL - Review of Systems Review Of Systems: See Below Constitutional: Reports: Malaise, Weakness, Decreased Appetite HEENT: Reports: No Symptoms Respiratory: Reports: No Symptoms Cardiovascular: Reports: No Symptoms Endocrine: Reports: No Symptoms GI/Abdominal: Reports: Constipation, Decreased Appetite, Nausea, Vomiting. Denies: Black Stool, Bloody Stool, Diarrhea, Distension, Hematemesis, Hematochezia, Melena, Stool Incontinence : Reports: No Symptoms Musculoskeletal: Reports: Back Pain Skin: Reports: No Symptoms Neurological: Reports: No Symptoms Psychiatric: Reports: No Symptoms ED EXAM, GENERAL - Physical Exam Exam: See Below Exam Limited By: No Limitations General Appearance: Alert, WD/WN, No Apparent Distress Eye Exam: Bilateral Eye: Normal Inspection Ears: Normal External Exam, Normal Canal, Hearing Grossly Normal, Normal TMs Ear Exam: Bilateral Ear: Auricle Normal, Canal Normal, TM normal Nose: Normal Inspection, Normal Mucosa, No Blood Throat/Mouth: Normal Inspection, Normal Lips, Normal Oropharynx, Normal Voice, No Airway Compromise Head: Atraumatic, Normocephalic Neck: Normal Inspection Respiratory/Chest: No Respiratory Distress, Lungs Clear, Normal Breath Sounds, No Accessory Muscle Use Cardiovascular: Regular Rate, Rhythm, No Edema GI/Abdominal: Normal Bowel Sounds, Soft, Non-Tender, No Distention Back Exam: Normal Inspection. No: CVA Tenderness (R), CVA Tenderness (L) Extremities: Normal Inspection, Normal Range of Motion, Non-Tender, No Pedal Edema Neurological: Alert, Oriented, CN II-XII Intact, Normal Cognition, No Motor/ Sensory Deficits Psychiatric: Normal Affect, Normal Mood Skin Exam: Warm, Dry, Intact, Normal Color, No Rash Course - Vital Signs Last Recorded V/S: Last Vital Signs Temp 36.2 C 06/08/17 18:04 Pulse 100 06/08/17 18:04 Resp 16 06/08/17 18:04 BP 152/83 H 06/08/17 18:04 Pulse Ox 97 06/08/17 18:04 - Orders/Labs/Meds Labs: Laboratory Tests 06/08/17 06/08/17 Range/Units 18:25 18:26 Sodium 141 (140-148) mmol/L Potassium 3.4 L (3.6-5.2) mmol/L Chloride 101 (100-108) mmol/L Carbon Dioxide 27 (21-32) mmol/L Anion Gap 16.4 H (5.0-14.0) mmol/L BUN 20 H D (7-18) mg/dL Creatinine 0.6 (0.6-1.0) mg/dL Est Cr Clr Drug Dosing 64.58 mL/min Estimated GFR (MDRD) > 60 (>60) Glucose 129 H (74-106) mg/dL Calcium 9.0 (8.5-10.1) mg/dL Magnesium 1.8 (1.8-2.4) mg/dL Meds: Medications Discontinued Medications Generic Name Dose Route Start Last Admin Trade Name Freq PRN Reason Stop Dose Admin Bisacodyl 10 mg 06/08/17 18:33 06/08/17 19:04 Dulcolax RECTAL 06/08/17 18:34 10 mg ONETIME ONE Administration Lactated Ringer's 1,000 mls @ 1,000 mls/hr 06/08/17 18:25 06/08/17 18:56 Ringers, Lactated IV 06/08/17 19:24 1,000 mls/hr BOLUS ONE Administration Ketorolac Tromethamine 15 mg 06/08/17 18:32 06/08/17 19:02 Toradol IVPUSH 06/08/17 18:33 15 mg ONETIME ONE Administration Metoclopramide HCl 10 mg 06/08/17 18:33 06/08/17 18:57 Reglan IVPUSH 06/08/17 18:34 10 mg ONETIME ONE Administration Polyethylene Glycol 34 gm 06/08/17 18:33 06/08/17 19:23 Miralax PO 06/08/17 18:34 34 gm ONETIME ONE Administration Potassium Chloride 20 meq 06/08/17 19:03 06/08/17 19:22 Klor-Con M20 PO 06/08/17 19:04 20 meq ONETIME ONE Administration Potassium Chloride 20 meq 06/08/17 19:28 Potassium Chloride Solution PO 06/08/17 19:29 ONETIME ONE Departure - Departure Time of Disposition: 20:00 Disposition: Home, Self-Care 01 Condition: Fair Clinical Impression: Mild dehydration, Nausea Constipation Qualifiers: Constipation type: slow transit constipation Qualified Code(s): K59.01 - Slow transit constipation - Discharge Information Prescriptions: Prochlorperazine [Compazine] 25 mg RC TID PRN #14 supp.rect PRN Reason: Nausea Referrals: Ilir Barahona MD [Primary Care Provider] - Forms: ED Department Discharge
[2017-06-08] MEDS ORDERED: Potassium Chloride 20 MEQ Tab.ER PO ONE (19:03)
[2017-06-08] MEDS ORDERED: Potassium Chloride 10% 20 MEQ/15 ML Soln 15 ML UD Cup PO ONE (19:28)
[2017-06-08 19:41] VITALS: BP 128/78
== END 2017-06-08 20:05 | disposition home or self-care (01) ==
LOC: JP.ED 17:19
DX: E86.0 Dehydration (principal); K59.01 Slow transit constipation; E78.00 Pure hypercholesterolemia, unspecified; E11.9 Type 2 diabetes mellitus without complications; Z88.0 Allergy status to penicillin; Z79.899 Other long term (current) drug therapy
CPT/HCPCS: 36415; 80048; 83735; 96361; 96374; 96375; 99285; A9270; J1885; J2765; J7120; 99284

== ENCOUNTER 2017-07-02 18:20 | Observation (INO) | payer MEDICARE ==
--- NOTE | 2017-07-02 19:11 | EDM.PDOC ---
ED HPI GENERAL MEDICAL PROBLEM - General Chief Complaint: General Stated Complaint: FELL HURT HEAD Time Seen by Provider: 07/02/17 18:40 Source of Information: Reports: Patient, EMS, Family History Limitations: Reports: No Limitations - History of Present Illness INITIAL COMMENTS - FREE TEXT/NARRATIVE: 77-year-old female who was recently diagnosed with pancreatic cancer has been losing weight, getting weaker and waiting to gain some strength to start chemotherapy for her cancer. Last week she had a 2 day extensive evaluation at [facility]. Tonight she was lying on the couch when the phone rang, she got up and does not remember any presyncopal symptoms but the next thing she knew she was on the floor with significant facial trauma. She hit a hard tile floor. She has several dental fractures, a nasal laceration and likely sustained a concussion. She denies any neck pain, chest pain, palpitations, shortness of breath, or extremity injuries. She arrived by ambulance after receiving 0.5 mg of IV Dilaudid for pain control. She was considering seeing her primary physician in the near future because of weakness. She has no diarrhea and has not had vomiting. Onset: Sudden Location: Reports: Head, Face Severity: Moderate Associated Symptoms: Reports: Loss of Appetite, Malaise, Syncope, Weakness. 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 (see below) (0.5 mg of Dilaudid IV per EMS) Nose Pain Score (Numeric/FACES): 5 - Related Data Allergies Allergy/AdvReac Type Severity Reaction Status Date / Time Penicillins Allergy unknown Verified 07/02/17 21:08 diphenhydramine AdvReac Confusion Verified 07/02/17 21:08 [From Benadryl] Home Meds: Home Meds Ondansetron HCl [Zofran] 4 mg PO Q4H 06/08/17 [History] Ondansetron [Zofran ODT] 4 mg PO Q6H PRN #14 tab.dis 06/08/17 [Rx] Prochlorperazine [Compazine] 25 mg RC TID PRN #14 supp.rect 06/08/17 [Rx] ClonazePAM [KlonoPIN] 0.5 mg PO BEDTIME 07/02/17 [History] Diclofenac Sodium 4 g TOP ASDIRECTED PRN 07/02/17 [History] Morphine Sulfate 5 ml PO Q6H PRN 07/02/17 [History] Past Medical History HEENT History: Reports: None, Sinusitis Cardiovascular History: Reports: High Cholesterol Respiratory History: Reports: Asthma Gastrointestinal History: Reports: Cholelithiasis, Colon Polyp, GERD, PUD Genitourinary History: Reports: None 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: Musculoskeletal History: Reports: Fracture, Osteoporosis Neurological History: Reports: Concussion Endocrine/Metabolic History: Reports: Diabetes, Type II Hematologic History: Reports: Blood Transfusion(s) Oncologic (Cancer) History: Reports: Pancreatic Dermatologic History: Reports: Eczema - Infectious Disease History Infectious Disease History: Reports: C-Difficile, Measles, Mumps - Past Surgical History HEENT Surgical History: Reports: Adenoidectomy, Tonsillectomy Cardiovascular Surgical History: Reports: None Respiratory Surgical History: Reports: None GI Surgical History: Reports: Cholecystectomy, Colonoscopy, EGD, Polypectomy, Other (See Below) Other GI Surgeries/Procedures: stent in bile duct Female Surgical History: Reports: Hysterectomy Neurological Surgical History: Reports: None Musculoskeletal Surgical History: Reports: None Dermatological Surgical History: Reports: None Social & Family History - Family History Endocrine/Metabolic: Reports: Diabetes, type II Oncologic: Reports: Colon - Tobacco Use Smoking Status *Q: Never Smoker Second Hand Smoke Exposure: No - Caffeine Use Caffeine Use: Reports: Tea - Alcohol Use Days Per Week of Alcohol Use: 0 - Recreational Drug Use Recreational Drug Use: No Drug Use in Last 12 Months: No ED ROS GENERAL - Review of Systems Review Of Systems: See Below Constitutional: Reports: Malaise, Weakness, Decreased Appetite. Denies: Fever, Chills Respiratory: Denies: Shortness of Breath Cardiovascular: Denies: Chest Pain GI/Abdominal: Reports: Abdominal Pain (Intermittent abdominal pain) Skin: Reports: Pallor Neurological: Reports: Weakness ED EXAM, GENERAL - Physical Exam Exam: See Below Exam Limited By: No Limitations General Appearance: Alert, Anxious, Mild Distress Eye Exam: Bilateral Eye: EOMI Nose: Other (Patient has a curved 1.5 cm laceration on the nasal bridge, with underlying tenderness. Also dried blood in the nares, no septal hematoma.) Throat/Mouth: Other (Patient has a fractured tooth, the right upper incisor. The canine is loose as well with some bleeding around the room. The jaw is nontender.) Neck: Supple, Non-Tender Respiratory/Chest: No Respiratory Distress, Lungs Clear Cardiovascular: Regular Rate, Rhythm Extremities: Normal Inspection Neurological: Alert, Oriented Skin Exam: Warm, Dry Course - Vital Signs Last Recorded V/S: Last Vital Signs Temp 97.5 F 07/02/17 23:00 Pulse 87 07/02/17 23:00 Resp 15 07/02/17 23:00 BP 122/49 L 07/02/17 23:00 Pulse Ox 95 07/02/17 23:00 - Orders/Labs/Meds Orders: Active Orders 24 hr Category Date Time Status Patient Status [ADT] Routine ADT 07/02/17 21:04 Active Oxygen Therapy [RC] .PRN Care 07/02/17 21:04 Active Up With Assistance [RC] ASDIRECTED Care 07/02/17 21:04 Active VTE/DVT Education [RC] Per Unit Routine Care 07/02/17 21:04 Active Mechanical Soft Diet [DIET] Diet 07/02/17 Breakfast Active Head wo Cont [CT] Stat Exams 07/02/17 18:52 Taken Max Facial Sinus wo Cont [CT] Stat Exams 07/02/17 18:51 Taken Acetaminophen [Tylenol] Med 07/02/17 21:04 Active 650 mg PO Q4H PRN ClonazePAM [KlonoPIN] Med 07/03/17 21:00 Active 0.5 mg PO BEDTIME HYDROmorphone [Dilaudid] Med 07/02/17 21:07 Active 0.5 mg IVPUSH Q1H PRN Ondansetron [Zofran] Med 07/02/17 21:04 Active 4 mg IV Q4H PRN Sodium Chloride 0.9% [Normal Saline] 1,000 ml Med 07/02/17 21:15 Active IV ASDIRECTED Resuscitation Status Routine Resus Stat 07/02/17 21:04 Ordered Medication Orders Acetaminophen (Tylenol) 650 mg PO Q4H PRN PRN Reason: Pain (Mild 1-3)/fever Clonazepam (Klonopin) 0.5 mg PO BEDTIME NEAL Hydromorphone HCl (Dilaudid) 0.5 mg IVPUSH Q1H PRN PRN Reason: Pain Last Admin: 07/02/17 23:42 Dose: 0.5 mg Sodium Chloride (Normal Saline) 1,000 mls @ 125 mls/hr IV ASDIRECTED [facility] Ondansetron HCl (Zofran) 4 mg IV Q4H PRN PRN Reason: Nausea/Vomiting Labs: Laboratory Tests 07/02/17 07/02/17 Range/Units 19:52 19:52 WBC 7.9 (4.5-11.0) K/uL RBC 4.72 (3.30-5.50) M/uL Hgb 13.4 (12.0-15.0) g/dL Hct 41.2 (36.0-48.0) % MCV 87 (80-98) fL MCH 28 (27-31) pg MCHC 33 (32-36) % Plt Count 233 (150-400) K/uL Neut % (Auto) 66 (36-66) % Lymph % (Auto) 20 L (24-44) % [place] % (Auto) 13 H (2-6) % Eos % (Auto) 0 L (2-4) % Baso % (Auto) 1 (0-1) % Sodium 143 (140-148) mmol/L Potassium 3.2 L (3.6-5.2) mmol/L Chloride 98 L (100-108) mmol/L Carbon Dioxide 28 (21-32) mmol/L Anion Gap 20.2 H (5.0-14.0) mmol/L BUN 18 (7-18) mg/dL Creatinine 0.8 (0.6-1.0) mg/dL Est Cr Clr Drug Dosing 41.33 mL/min Estimated GFR (MDRD) > 60 (>60) Glucose 118 H (74-106) mg/dL Calcium 8.5 (8.5-10.1) mg/dL Total Bilirubin 0.8 D (0.2-1.0) mg/dL AST 37 D (15-37) U/L ALT 29 D (12-78) U/L Alkaline Phosphatase 152 H (46-116) U/L Total Protein 7.0 (6.4-8.2) g/dL Albumin 3.1 L (3.4-5.0) g/dL Globulin 3.9 H (2.3-3.5) g/dL Albumin/Globulin Ratio 0.8 L (1.2-2.2) Meds: Medications Generic Name Dose Route Start Last Admin Trade Name Freq PRN Reason Stop Dose Admin Acetaminophen 650 mg 07/02/17 21:04 Tylenol PO Q4H PRN Pain (Mild 1-3)/fever Clonazepam 0.5 mg 07/03/17 21:00 Klonopin PO BEDTIME NEAL Hydromorphone HCl 0.5 mg 07/02/17 21:07 07/02/17 23:42 Dilaudid IVPUSH 0.5 mg Q1H PRN Administration Pain Sodium Chloride 1,000 mls @ 125 mls/hr 07/02/17 21:15 Normal Saline IV ASDIRECTED NEAL Ondansetron HCl 4 mg 07/02/17 21:04 Zofran IV Q4H PRN Nausea/Vomiting Discontinued Medications Generic Name Dose Route Start Last Admin Trade Name Freq PRN Reason Stop Dose Admin Bacitracin 1 dose 07/02/17 19:16 07/02/17 19:22 Bacitracin Oint 1 Gm TOP 07/02/17 19:17 1 dose ONETIME ONE Administration Clonazepam 0.5 mg 07/03/17 00:36 Klonopin PO 07/03/17 00:37 ONETIME ONE Hydromorphone HCl 0.5 mg 07/02/17 20:12 07/02/17 20:16 Dilaudid IVPUSH 07/02/17 20:13 0.5 mg ONETIME ONE Administration Sodium Chloride 1,000 mls @ 250 mls/hr 07/02/17 20:00 07/02/17 19:58 Normal Saline IV 250 mls/hr ASDIRECTED [facility] Administration Lidocaine HCl 5 ml 07/02/17 19:15 07/02/17 19:22 Xylocaine-Mpf 1% INJECT 07/02/17 19:16 5 ml ONETIME ONE Administration - Re-Assessments/Exams Free Text/Narrative Re-Assessment/Exam: 07/02/17 19:49 CT the head and maxillofacial bones were obtained without contrast. When the patient returned from CT, 3 5-0 Ethilon sutures were used to close the laceration after 1% lidocaine anesthesia. Bleeding was controlled and the laceration and dental trauma. The patient felt too weak to go home, a CBC and CMP were obtained and IV fluids were started. 07/03/17 00:47 Potassium is 3.2, other labs were relatively normal. Dr. Caceres came in to evaluate the patient and admitted her for hydration, treatment of hypokalemia and weakness, along with pain control. Departure - Departure Time of Disposition: 22:30 Disposition: Admitted As Inpatient 66 Condition: Fair Clinical Impression: Facial laceration Qualifiers: Encounter type: initial encounter Qualified Code(s): S01.81XA - Laceration without foreign body of other part of head, initial encounter Tooth fractures Qualifiers: Encounter type: initial encounter Fracture type: closed Qualified Code(s): S02.5XXA - Fracture of tooth (traumatic), initial encounter for closed fracture Syncope Qualifiers: Syncope type: unspecified Qualified Code(s): R55 - Syncope and collapse - Discharge Information - My Orders Last 24 Hours: My Active Orders 07/02/17 18:51 Max Facial Sinus wo Cont [CT] Stat 07/02/17 18:52 Head wo Cont [CT] Stat - Assessment/Plan Last 24 Hours: My Active Orders 07/02/17 18:51 Max Facial Sinus wo Cont [CT] Stat 07/02/17 18:52 Head wo Cont [CT] Stat
[2017-07-02] MEDS ORDERED: Bacitracin Oint 1 GM U/D Packet TOP ONE (19:16)
[2017-07-02] MEDS ORDERED: Sodium Chloride 0.9% 1,000 ML IV SCH ×2 (20:00→21:15)
[2017-07-02] MEDS ORDERED: HYDROmorphone 0.5 MG/0.5 ML Syringe IVPUSH ONE (20:12)
[2017-07-02] MEDS ORDERED: Ondansetron 4 MG/2 ML SDV IV PRN (21:04)
[2017-07-02] MEDS ORDERED: Acetaminophen 325 MG Tab PO PRN (21:04)
[2017-07-02] MEDS: HYDROmorphone 0.5 MG/0.5 ML Syringe IVPUSH PRN (23:42)
[2017-07-03] MEDS ORDERED: ClonazePAM 0.5 MG Tab PO ONE (00:36)
[2017-07-03] MEDS: HYDROmorphone 0.5 MG/0.5 ML Syringe IVPUSH PRN ×4 (04:53→21:38)
[2017-07-03] MEDS ORDERED: Potassium Chloride 20 MEQ Tab.ER PO ONE (10:00)
--- NOTE | 2017-07-03 11:06 | HP ---
CHIEF COMPLAINT: Fall, possible syncope. HISTORY OF PRESENT ILLNESS: This is a 77-year-old, who back in April, had her gallbladder out and ended up finding out that she had pancreatic carcinoma. She was over at [facility] in [place], and it sounded like they were going to do a Whipple procedure but wanted a second opinion, went to [facility], and apparently, she is a high surgical risk because of the tumor including the vasculature of the pancreas, and they wanted to do chemotherapy, for which she is going to be meeting with Oncology this week to talk about chemotherapy, to see if they can treat the tumor and eventually have surgery. However, she has been having a lot of problems with some nausea and decreased appetite, just not wanting to eat, and eats a few bites and feels full. She has not been able to eat or drink much. She was resting. Her daughter was with her, but they were in different rooms. They both were taking a nap. The phone rang. She got up to get the phone. She does not remember really what happened, if she was lightheaded prior to that, but ended up waking up on the floor. The daughter found her, after she heard the commotion. She was alert and oriented at that time. She had a laceration of her nose, which was bleeding, blood coming from her nose, and some injured teeth. Ambulance was called, she came into the emergency room for further evaluation, was evaluated by Emergency Room physician, and was felt to be a little bit dehydrated, but did not otherwise find a reason for her syncopal episode or fall. She did have a laceration to the bridge of her nose, which was repaired. CT scan of her brain was unremarkable, but did show a nasal fracture. She had broken teeth. I was asked to admit the patient under observation for further evaluation and treatment. PAST MEDICAL HISTORY: 1. Cholecystectomy back in April. 2. Recent diagnosis of pancreatic carcinoma. 3. She has had some mild asthma. Otherwise, really not a lot of other medical problems. PAST SURGICAL HISTORY: She had a hysterectomy done for fibroids back in the 1980s. CURRENT MEDICATIONS: 1. Clonazepam 0.5 mg at bedtime. 2. Diclofenac topically as directed. 3. Morphine. 4. Zofran p.r.n. 5. Compazine p.r.n. ALLERGIES: TO PENICILLIN AND DIPHENHYDRAMINE. SOCIAL HISTORY: She has never smoked. No alcohol use. FAMILY HISTORY: There is no cancer that she knows of in the family. of prostate cancer about a year ago. REVIEW OF SYSTEMS: HEENT: She does have a headache from the fall, laceration, pain in her nose, and pain in her mouth. The Dilaudid is helping quite a bit. Currently not having a lot of problems with nausea. CARDIORESPIRATORY: No chest pain or trouble breathing. GASTROINTESTINAL: She denies any bowel or bladder issues. EXTREMITIES: No swelling in her legs. DERMATOLOGIC: No skin problems reported other than above. NEUROLOGICAL: No other neurologic complaints reported. OBJECTIVE/PHYSICAL EXAMINATION: VITAL SIGNS: Weight is 44 kg. Temperature is 37.5, pulse is 89, blood pressure is 123/77, O2 saturation is 90% on room air, and respiratory rate is 11. HEENT: She does have a laceration at the bridge of her nose, which is bandaged. She does have pain in her nose with swelling, and some old blood around her nose. She does have quite a bit of old blood in the mouth with damage to her teeth. NECK: Supple. No adenopathy, thyromegaly, JVD, or carotid bruits. LUNGS: Clear. HEART: Regular without murmurs. ABDOMEN: Soft. She did have some upper abdominal discomfort. No masses or organomegaly palpated. No distention. EXTREMITIES: No edema. SKIN: Otherwise unremarkable. NEUROLOGICAL: She seems to be alert and oriented x3 and resting comfortably now with the Dilaudid. LABORATORY DATA: White count was 7.9, hemoglobin was 13.4, platelets were 233,000 with 66% neutrophils, 22% lymphocytes, and 13% monocytes. Sodium of 143, potassium of 3.2, chloride of 98, BUN of 18, creatinine of 0.8, and glucose of 118. Liver functions were normal, other than alkaline phosphatase that was high at 152. ASSESSMENT AND PLAN: 1. Pancreatic cancer, not felt to be operable at this point. We are going to try chemotherapy, and meeting with Oncology in a couple of days to discuss chemotherapy to try to shrink the tumor and eventually be able to do a Whipple procedure, but she is quite weak and has not been able to eat, so they do understand that she needs to be able to be strong enough to tolerate this. 2. Recent cholecystectomy. 3. Syncopal episode, probably secondary to above. We will admit her under observation. Anticipate less than two midnight stays. IV fluids, Dilaudid for pain, and Zofran for nausea as needed. Kanu Caceres MD /[id number]
[2017-07-03] MEDS ORDERED: Sodium Chloride 0.9% 1,000 ML IV SCH (15:30)
--- NOTE | 2017-07-03 15:42 | PCM.PN ---
- General Info Date of Service: 07/03/17 Subjective Update: This patient is a 77-year-old woman with a known history of pancreatic cancer. This was diagnosed recently and she is been seen at the [facility] in [facility]. At the [facility] they did not feel that she was a candidate for a Whipple procedure because of involvement of vasculature with the tumor. Plan it been to proceed with chemotherapy and she has an appointment with oncology tomorrow. She is been unable to eat and has become very weak and dehydrated. Yesterday evening experienced a syncopal episode when she stood up. She experienced some broken teeth as well as a nasal fracture. Functional Status: Reports: Pain Controlled, Urinating. Denies: Tolerating Diet - Review of Systems General: Reports: Weakness. Denies: Fever, Chills Pulmonary: Reports: No Symptoms Cardiovascular: Reports: No Symptoms Gastrointestinal: Reports: Abdominal Pain, Constipation, Decreased Appetite, Nausea. Denies: Diarrhea, Difficulty Swallowing - Patient Data Vitals - Most Recent: Last Vital Signs Temp 97.2 F 07/03/17 14:13 Pulse 77 07/03/17 14:13 Resp 18 07/03/17 14:13 BP 87/61 L 07/03/17 14:13 Pulse Ox 83 L 07/03/17 14:13 Weight - Most Recent: 101 lb 9.6 oz I&O - Last 24 Hours: Intake & Output 07/03/17 07/03/17 07/03/17 06:59 14:59 22:59 Intake Total 875 230 Output Total 100 150 Balance 775 80 Lab Results Last 24 Hours: Laboratory Results - last 24 hr 07/02/17 07/02/17 Range/Units 19:52 19:52 WBC 7.9 (4.5-11.0) K/uL RBC 4.72 (3.30-5.50) M/uL Hgb 13.4 (12.0-15.0) g/dL Hct 41.2 (36.0-48.0) % MCV 87 (80-98) fL MCH 28 (27-31) pg MCHC 33 (32-36) % Plt Count 233 (150-400) K/uL Neut % (Auto) 66 (36-66) % Lymph % (Auto) 20 L (24-44) % [place] % (Auto) 13 H (2-6) % Eos % (Auto) 0 L (2-4) % Baso % (Auto) 1 (0-1) % Sodium 143 (140-148) mmol/L Potassium 3.2 L (3.6-5.2) mmol/L Chloride 98 L (100-108) mmol/L Carbon Dioxide 28 (21-32) mmol/L Anion Gap 20.2 H (5.0-14.0) mmol/L BUN 18 (7-18) mg/dL Creatinine 0.8 (0.6-1.0) mg/dL Est Cr Clr Drug Dosing 41.33 mL/min Estimated GFR (MDRD) > 60 (>60) Glucose 118 H (74-106) mg/dL Calcium 8.5 (8.5-10.1) mg/dL Total Bilirubin 0.8 D (0.2-1.0) mg/dL AST 37 D (15-37) U/L ALT 29 D (12-78) U/L Alkaline Phosphatase 152 H (46-116) U/L Total Protein 7.0 (6.4-8.2) g/dL Albumin 3.1 L (3.4-5.0) g/dL Globulin 3.9 H (2.3-3.5) g/dL Albumin/Globulin Ratio 0.8 L (1.2-2.2) Med Orders - Current: Current Medications Acetaminophen (Tylenol) 650 mg PO Q4H PRN PRN Reason: Pain (Mild 1-3)/fever Clonazepam (Klonopin) 0.5 mg PO BEDTIME NEAL Hydromorphone HCl (Dilaudid) 0.5 mg IVPUSH Q1H PRN PRN Reason: Pain Last Admin: 07/03/17 15:10 Dose: 0.5 mg Potassium Chloride 40 meq/ (Premix) 100 mls @ 25 mls/hr IV ONETIME ONE Stop: 07/03/17 19:19 Sodium Chloride (Normal Saline) 1,000 mls @ 50 mls/hr IV ASDIRECTED [facility] Ondansetron HCl (Zofran) 4 mg IV Q4H PRN PRN Reason: Nausea/Vomiting Discontinued Medications Bacitracin (Bacitracin Oint 1 Gm) 1 dose TOP ONETIME ONE Stop: 07/02/17 19:17 Last Admin: 07/02/17 19:22 Dose: 1 dose Clonazepam (Klonopin) 0.5 mg PO ONETIME ONE Stop: 07/03/17 00:37 Last Admin: 07/03/17 00:50 Dose: 0.5 mg Hydromorphone HCl (Dilaudid) 0.5 mg IVPUSH ONETIME ONE Stop: 07/02/17 20:13 Last Admin: 07/02/17 20:16 Dose: 0.5 mg Sodium Chloride (Normal Saline) 1,000 mls @ 250 mls/hr IV ASDIRECTED [facility] Last Admin: 07/02/17 19:58 Dose: 250 mls/hr Sodium Chloride (Normal Saline) 1,000 mls @ 125 mls/hr IV ASDIRECTED [facility] Last Admin: 07/03/17 00:51 Dose: 125 mls/hr Lidocaine HCl (Xylocaine-Mpf 1%) 5 ml INJECT ONETIME ONE Stop: 07/02/17 19:16 Last Admin: 07/02/17 19:22 Dose: 5 ml Potassium Chloride (Klor-Con M20) 40 meq PO ONETIME ONE Stop: 07/03/17 10:01 Last Admin: 07/03/17 10:41 Dose: 40 meq - Exam General: Alert, Oriented, Cooperative, Mild Distress Lungs: Clear to Auscultation, Normal Respiratory Effort Cardiovascular: Regular Rate, Regular Rhythm, No Murmurs GI/Abdominal Exam: Soft, No Organomegaly, Tender. No: Distended, Guarding, Rigid, Rebound - Problem List Review Problem List Initiated/Reviewed/Updated: Yes - My Orders Last 24 Hours: My Active Orders 07/03/17 14:10 Consult to Dietary [Consult to Fish Receiver] [CONS] Routine 07/03/17 15:20 Potassium Chloride [KCL 40 MEQ in Water 100 ML] 40 meq Premix Bag 1 bag IV ONETIME 07/03/17 15:30 Sodium Chloride 0.9% @ 50 MLS/HR(1000ml) Sodium Chloride 0.9% [Normal Saline] 1 ,000 ml IV ASDIRECTED - Plan Plan:: ASSESSMENT AND PLAN PANCREATIC CARCINOMA-she would like to proceed with chemotherapy but realizes that she is very weak with significant malnutrition. She is been unable to eat likely related to her underlying malignancy. We discussed options for ongoing management including central line placement and TPN. At the present time I do not think that she would tolerate feedings through a gastrostomy tube. -Appointment tomorrow with oncology to discuss options for management; consider proceeding with chemotherapy versus hospice referral -consider Port-A-Cath placement and TPN for nutritional support SYNCOPAL EPISODE -likely secondary to dehydration and weakness from her underlying pancreatic cancer MAINTENANCE ISSUES -DVT prophylaxis; continue as ordered per Dr. Caceres -GI prophylaxis; not required -Contreras catheter; not indicated -Nutrition; regular diet -Nicotinine dependence; not required CODE STATUS- FULL CODE ADMISSION STATUS-this patient will be admitted to observation status, expect no more than a one night hospital stay for evaluation and management of problems as outlined above. DISPOSITION-anticipate discharge to home after the hospital stay.
[2017-07-03] MEDS: Potassium Chloride 20 MEQ, Lidocaine 1% 2 ML in Sodium Chloride 0.9% 100 ML IV SCH ×2 (16:48→20:01)
[2017-07-03] MEDS: Pantoprazole 40 MG Vial IVPUSH SCH (16:48)
[2017-07-03] MEDS ORDERED: ClonazePAM 0.5 MG Tab PO SCH (21:00)
[2017-07-04] MEDS: Pantoprazole 40 MG Vial IVPUSH SCH (04:02)
[2017-07-04 07:13] VITALS: BP 107/55
--- NOTE | 2017-07-04 08:14 | PCM.DCSUM1 ---
Discharge Summary - Hospital Course Brief History: This patient is a 77-year-old woman who was admitted to observation status through the emergency department after she experienced a syncopal episode at home. - Discharge Data Discharge Date: 07/04/17 Discharge Disposition: Home, W Home Health Agency 06 Condition: Poor - Discharge Diagnosis/Problem(s) (1) Syncope SNOMED Code(s): 537246494 ICD Code: R55 - SYNCOPE AND COLLAPSE Status: Acute Current Visit: Yes Qualifiers: Syncope type: unspecified Qualified Code(s): R55 - Syncope and collapse (2) Pancreatic tumor SNOMED Code(s): 919609760 ICD Code: D49.0 - NEOPLASM OF UNSPECIFIED BEHAVIOR OF DIGESTIVE SYSTEM Status: Chronic Current Visit: No (3) Diabetes mellitus, type II SNOMED Code(s): 10255859 ICD Code: E11.9 - TYPE 2 DIABETES MELLITUS WITHOUT COMPLICATIONS Status: Chronic Current Visit: No Qualifiers: Diabetes mellitus exterminator insulin use: without exterminator use Diabetes mellitus complication status: without complication Qualified Code(s): E11.9 - Type 2 diabetes mellitus without complications - Patient Summary/Data Consults: Consultations 07/03/17 14:10 Consult to Dietary [Consult to Electronic Drafter] [CONS] Routine Comment: Physician Instructions: Quantity: Reason for Consult: malnutrition Person Notified: Callie Garcia Date Notified: 07/03/17 Time Notified: 14:11 Hospital Course: This patient is a 77-year-old woman with a known history of pancreatic cancer. This was diagnosed recently and she is been seen at the [facility] in [facility]. At the [facility] they did not feel that she was a candidate for a Whipple procedure because of involvement of vasculature with the tumor. Plan had been to proceed with chemotherapy and she has an appointment with oncology on July 04. She has been unable to eat and has become very weak and dehydrated. On the evening prior to admission she experienced a syncopal episode when she stood up. She experienced some broken teeth as well as a nasal fracture. CT scan of the head and neck obtained in the emergency department showed evidence of a nasal fracture, no other fractures or significant abnormalities identified. She was admitted to observation status for further monitoring and follow-up. On admission she was given IV fluids for hydration and continued on her usual outpatient medications. Oral intake remained very poor throughout her hospitalization, she has lost approximately 30 pounds over the past 2 months. She will be meeting with the oncologist after discharge and will discuss options for ongoing management. If she decides to proceed with chemotherapy we discussed placement of a port and initiation of TPN to try and improve her nutritional status. If she decides not to proceed with chemotherapy will plan for hospice admission. Activity will be as tolerated continue current diet. Follow-up appointment will be scheduled with her primary care provider within one week. - Patient Instructions Diet: Usual Diet as Tolerated Activity: As Tolerated Other/Special Instructions: Please arrange for home care after discharge including home physical therapy and occupational therapy. Please schedule follow -up appointment with primary care provider within one week. Patient already has appointment scheduled this morning with oncology at 10 AM. - Discharge Plan Home Medications: Home Meds Ondansetron HCl [Zofran] 4 mg PO Q4H 06/08/17 [History] Ondansetron [Zofran ODT] 4 mg PO Q6H PRN #14 tab.dis 06/08/17 [Rx] Prochlorperazine [Compazine] 25 mg RC TID PRN #14 supp.rect 06/08/17 [Rx] ClonazePAM [KlonoPIN] 0.5 mg PO BEDTIME 07/02/17 [History] Diclofenac Sodium 4 g TOP ASDIRECTED PRN 07/02/17 [History] Morphine Sulfate 5 ml PO Q6H PRN 07/02/17 [History] Referrals: Ilir Barahona MD [Primary Care Provider] - - Discharge Summary/Plan Comment DC Time >30 min.: No - Patient Data Vitals - Most Recent: Last Vital Signs Temp 96.8 F 07/04/17 07:00 Pulse 74 07/04/17 07:00 Resp 18 07/04/17 07:00 BP 107/55 L 07/04/17 07:00 Pulse Ox 97 07/04/17 07:00 Weight - Most Recent: 101 lb 9.6 oz I&O - Last 24 hours: Intake & Output 07/03/17 07/04/17 07/04/17 22:59 06:59 14:59 Intake Total 1651 454 Output Total 100 200 Balance 1551 254 Med Orders - Current: Current Medications Acetaminophen (Tylenol) 650 mg PO Q4H PRN PRN Reason: Pain (Mild 1-3)/fever Clonazepam (Klonopin) 0.5 mg PO BEDTIME [facility] Last Admin: 07/03/17 21:38 Dose: 0.5 mg Hydromorphone HCl (Dilaudid) 0.5 mg IVPUSH Q1H PRN PRN Reason: Pain Last Admin: 07/03/17 21:38 Dose: 0.5 mg Sodium Chloride (Normal Saline) 1,000 mls @ 50 mls/hr IV ASDIRECTED [facility] Last Admin: 07/03/17 20:00 Dose: 50 mls/hr Ondansetron HCl (Zofran) 4 mg IV Q4H PRN PRN Reason: Nausea/Vomiting Pantoprazole Sodium (Protonix Iv) 40 mg IVPUSH Q12H [facility] Last Admin: 07/04/17 04:02 Dose: 40 mg Discontinued Medications Bacitracin (Bacitracin Oint 1 Gm) 1 dose TOP ONETIME ONE Stop: 07/02/17 19:17 Last Admin: 07/02/17 19:22 Dose: 1 dose Clonazepam (Klonopin) 0.5 mg PO ONETIME ONE Stop: 07/03/17 00:37 Last Admin: 07/03/17 00:50 Dose: 0.5 mg Hydromorphone HCl (Dilaudid) 0.5 mg IVPUSH ONETIME ONE Stop: 07/02/17 20:13 Last Admin: 07/02/17 20:16 Dose: 0.5 mg Sodium Chloride (Normal Saline) 1,000 mls [facility] Admin: 07/02/17 19:58 Dose: 250 mls/hr Sodium Chloride (Normal Saline) 1,000 mls @ 125 [facility]ls[facility] Last Admin: 07/03/17 00:51 Dose: 125 mls/hr Potassium Chloride 20 meq/Lidocaine HCl 2 ml/ Sodium Chloride 112 mls @ 56 mls/ hr IV Q2H [facility] Stop: 07/03/17 19:59 Last Admin: 07/03/17 20:01 Dose: 56 mls/hr Lidocaine HCl (Xylocaine-Mpf 1%) 5 ml INJECT ONETIME ONE Stop: 07/02/17 19:16 Last Admin: 07/02/17 19:22 Dose: 5 ml Potassium Chloride (Klor-Con M20) 40 meq PO ONETIME ONE Stop: 07/03/17 10:01 Last Admin: 07/03/17 10:41 Dose: 40 meq - Exam General: Reports: Alert, Oriented, Cooperative, Mild Distress Lungs: Reports: Clear to Auscultation, Normal Respiratory Effort Cardiovascular: Reports: Regular Rate, Regular Rhythm, No Murmurs GI/Abdominal Exam: Soft, No Organomegaly, Tender. No: Distended, Guarding, Rigid, Rebound Extremities: Non-Tender, No Pedal Edema Skin: Reports: Warm, Dry, Intact
== END 2017-07-04 09:47 | disposition home health service (06) ==
LOC: JP.ED 18:20 → JP.MS 21:20
PROVIDERS: ADMIT Family Medicine; ATTEND Family Medicine
DX: R55 Syncope and collapse (principal); D49.0 Neoplasm of unspecified behavior of digestive system; E11.9 Type 2 diabetes mellitus without complications; J45.909 Unspecified asthma, uncomplicated; Z79.899 Other long term (current) drug therapy; Z88.0 Allergy status to penicillin; Z88.8 Allergy status to other drugs, medicaments and biological substances
CPT/HCPCS: 12011; 36415; 70450; 70486; 80053; 85025; 96361; 96365; 96366; 96375; 96376; 99285; A9270; C9113; G0378; J1170; J3480; J7030; J7040; 96374; 99217; 99225; 99284